=== PATIENT | male | born 1955 | race Caucasian/White ===

== ENCOUNTER 2020-02-11 02:00 | Outpatient (CLI) | payer BC, SELFPAY ==
[2020-02-11 20:00] LABS: SARS-CoV-2 RNA PCR Negative
== END 2020-02-11 02:01 | disposition home or self-care (01) ==
LOC: ANHCOVIDDT 02:01
PROVIDERS: PCP Family Medicine; Visit Provider Internal Medicine Critical Care Medicine
DX: Z01.812 Encounter for preprocedural laboratory examination (principal); Z20.828 Contact with and (suspected) exposure to other viral communicable diseases
CPT/HCPCS: 87635; C9803; U0003

== ENCOUNTER 2020-02-14 07:53 | Outpatient (CLI) | payer BC, SELFPAY ==
--- NOTE | 2020-03-25 16:11 | WPDSLEEPSTUD ---
Sleep Study Date of Study: 02/14/20 Ordering Provider: Dr.Foner Leon. Interpreting Physician: Sleep Study Type: ASV Height: 1.78 m Weight: 83.915 kg Body Mass Index: 26.5 Neck Circumference: 41.91 cm [place]: 11 Reason for Sleep Study Patient has established diagnosis of obstructive sleep apnea and has been using BiPAP therapy. However he continues to have significant daytime symptomatology, difficulty in the getting sleep with BiPAP, and BiPAP download showing many central events. Sleep History History of snoring, daytime sleepiness, daytime fatigue. [facility] Past Medical History Medical History (Updated 02/08/20 @ 08:56 by Katharina Acuna) Actinic keratosis Acute pharyngitis, unspecified Benign prostatic hyperplasia without lower urinary tract symptoms Chronic left ventricular systolic dysfunction Chronic low back pain Chronic systolic (congestive) heart failure Colon cancer screening Dietary counseling and surveillance (05/30/15) Dyslipidemia Elevated glucose Family history of early CAD Fatigue Hx of melanoma of skin 0.43 mm February 2014 Mixed hyperlipidemia Multinodular goiter Nail remnant of finger Numbness of right hand Other chronic pain Paresthesia and pain of right extremity Paresthesia of skin Personal history of malignant melanoma Prediabetes Prostate cancer screening Situational depression Skin exam, screening for cancer Skin neoplasm Thyroid nodule Vitamin D deficiency Wellness examination Surgical History Surgical History History of hernia repair History of spinal fusion Family History Family History Father Hypertension Patient's father is in good health Family history of cardiovascular disease Mother Patient's mother is Sibling Patient's sister is in good health Patient's brother is in good health Other Family history of congestive heart failure Social History Social History Smoking status: Light tobacco smoker Tobacco type: cigars Second hand tobacco smoke exposure: No Alcohol intake: current Substance use type: marijuana Medications Home Medications Medication Instructions Recorded Confirmed Type aspirin 81 mg tablet,delayed 81 mg PO DAILY 01/07/19 01/07/20 History release glucosamine 500 mg-msm 100 mg-vit cap PO 01/07/19 01/07/20 History C 20 hc-lyupq-xzxy-primrose capsule krill oil 500 mg capsule mg PO 01/07/19 01/07/20 History multivitamin 1 tablet PO DAILY 01/07/19 01/07/20 History cyanocobalamin (vitamin B-12) 1,000 mcg PO DAILY 04/01/19 01/07/20 History 1,000 mcg capsule pyridoxine (vitamin B6) 50 mg 50 mg PO DAILY 04/01/19 01/07/20 History capsule simvastatin 40 mg tablet See Rx Instructions .ROUTE 06/21/19 01/07/20 Rx .COMPLEX #90 tablet eszopiclone 3 mg tablet 3 mg PO .hs #2 tablet 01/07/20 01/07/20 Rx Sleep Procedure Overnight polysomnography devoted to ASV titration. Initially nasal pillows were used but subsequently Resmed air fit F 30 fullface mask of medium size was employed. Sleep Architecture total recording time 427 minutes, total sleep time 330 minutes, sleep efficiency 77.3%. Sleep latency 4.5 minutes, REM latency 142 minutes. Awake after sleep onset 92 minutes, stage N1 13%, N2 69.7%, N3 0%, REM sleep 17.3%. Supine sleep 52.6%, supine REM 8.6%. Respiratory Analysis AASM criteria used. During titration there were no obstructive or central apneas. Patient had 35 hypopnea episodes with index of 6.4. Apnea-hypopnea index was 6.4, supine index 8.0 nonsupine index 4.6. REM index 0 non-REM index 7.7. Arousals Total arousals 278 with index 39.1, hypopnea 23, snore 3, spontaneous 160, leg movements 92. Periodic Limb Movements There were numerous leg movements, a total of 1393 episodes counte
[2020-03-25 16:33] VITALS: BMI 26.5
== END 2020-02-14 07:54 | disposition home or self-care (01) ==
LOC: ANHCSM 07:54
PROVIDERS: PCP Family Medicine; Visit Provider Nurse Practitioner Family
DX: G47.31 Primary central sleep apnea (principal)
CPT/HCPCS: 95811

== ENCOUNTER 2020-05-15 08:27 | Outpatient (CLI) | payer BC, SELFPAY ==
--- NOTE | 2020-05-15 08:52 | ECHO_ITS ---
Patient Info Name: James Bolton Age: 64 years : 1955 Gender: Male Ht: 70 in Wt: 185 lbs BSA: 2.05 m2 HR: 58 bpm BP: 149 / 69 mmHg Technical Quality: Good Exam Date: 05/15/2020 9:23 AM Exam Location: [facility] Patient Status: Outpatient Admit Date: 05/15/2020 Staff Ordering Physician: Ming Ayala APRN Manufacturing Quality Engineer: Kerry Chowdary RDCS Attending Provider: Ming Ayala APRN Referring Physician: Jamie JO; Exam Type: CA echo doppler color flow Study Info Indications - sleep apnea Complete two-dimensional, color flow and Doppler transthoracic echocardiogram is performed. Summary 1. Complete two-dimensional, color flow and Doppler transthoracic echocardiogram is performed. 2. Left ventricular chamber dimension is normal. 3. Left ventricular systolic function is normal, estimated at 55-60%. 4. The left ventricular diastolic function is grade II diastolic dysfunction. 5. Left atrial chamber dimension is mildly enlarged. 6. The mitral valve has mildly calcified annulus. 7. There is trace mitral valve regurgitation. 8. There is trace tricuspid valve regurgitation. 9. No pulmonary hypertension, estimated pulmonary arterial systolic pressure is 19 mmHg. Left Ventricle Tissue doppler is not performed. Left ventricular chamber dimension is normal. Left ventricular systolic function is normal, estimated at 55-60%. The left ventricular diastolic function is grade II diastolic dysfunction. Right Ventricle Right ventricular chamber dimension is normal. Right ventricular systolic function is normal. Left Atria Left atrial chamber dimension is mildly enlarged. Right Atria Right atrial chamber dimension is normal. Aortic Valve The aortic valve is trileaflet. There is no aortic valve stenosis. There is no aortic valve regurgitation. Pulmonic Valve There is no pulmonic regurgitation. Mitral Valve The mitral valve has mildly calcified annulus. There is no mitral valve stenosis. There is trace mitral valve regurgitation. Tricuspid Valve There is trace tricuspid valve regurgitation. No pulmonary hypertension, estimated pulmonary arterial systolic pressure is 19 mmHg. Pericardium/Pleural There is no pericardial effusion. Inferior Vena Cava Normal inferior vena cava with >50% collapse upon inspiration consistent with normal right atrial pressure, 5 mmHg. Aorta The aortic root size at the sinus of Valsalva is normal. Left Ventricular Outflow Tract Name Value Normal LVOT 2D LVOT Diameter 2.1 cm LVOT Doppler LVOT Peak Gradient 4 mmHg LVOT Mean Gradient 2 mmHg LVOT VTI 20 cm LVOT VTI/AV VTI Ratio 0.8 LVOT Stroke Volume 72 ml LVOT CO 13.6 l/min LVOT CI 6.6 l/min/m2 Mitral Valve Name Value Normal
== END 2020-05-15 08:28 | disposition home or self-care (01) ==
PROVIDERS: PCP Family Medicine; Visit Provider Nurse Practitioner Family
DX: I50.22 Chronic systolic (congestive) heart failure (principal); G47.31 Primary central sleep apnea
CPT/HCPCS: 93306

== ENCOUNTER 2020-09-08 01:22 | Day surgery (SDC) | payer MEDICARE, SELFPAY ==
[2020-08-30 11:06] VITALS: BMI 26.5
[2020-09-08 08:14] VITALS: BP 121/82; PULSE 76; RESP 20; TEMP 35.9; O2SAT 100; BMI 28.2
--- NOTE | 2020-09-08 08:30 | WPDGICN ---
Assessment and Plan Assessment and plan (1) Colon cancer screening: Code(s): Z12.11 - Encounter for screening for malignant neoplasm of colon Status: Acute Assessment and Plan: Patient presents for screening colonoscopy. He had does have a history of colon polyps. Further recommendations will be given after colonoscopy. (2) History of colon polyps: Code(s): Z86.010 - Personal history of colonic polyps Status: Acute Assessment and Plan: Patient had colon polyps identified by endoscopy 2018. Plan is for surveillance colonoscopy at this time and at intervals in the future. GI Consult Note Consult date/time: 09/08/20 08:30 HPI: James Bolton is a 65 year old male presents for surveillance colonoscopy. Patient has a history of colon polyps by endoscopy 3 years ago. Patient reports that his current weight appetite bowel movements are normal. He denies abdominal pain. He has had no pain or bleeding. His family history is noncontributory. Review of Systems Review of Systems: All systems reviewed & are unremarkable except as noted in HPI and below PMFSH Past Medical History Medical History (Updated 09/08/20 @ 08:32 by Tom Do MD) Actinic keratosis Acute pharyngitis, unspecified Benign prostatic hyperplasia without lower urinary tract symptoms Chronic left ventricular systolic dysfunction Chronic low back pain Chronic systolic (congestive) heart failure Colon cancer screening Dietary counseling and surveillance (05/30/15) Dyslipidemia Elevated glucose Family history of early CAD Fatigue Hx of melanoma of skin 0.43 mm February 2014 Mixed hyperlipidemia Multinodular goiter Nail remnant of finger Numbness of right hand Other chronic pain Paresthesia and pain of right extremity Paresthesia of skin Personal history of malignant melanoma Prediabetes Prostate cancer screening Situational depression Skin exam, screening for cancer Skin neoplasm Thyroid nodule Vitamin D deficiency Wellness examination Surgical History Surgical History History of hernia repair History of spinal fusion Family History Family History Father Hypertension Patient's father is in good health Family history of cardiovascular disease Mother Patient's mother is Sibling Patient's sister is in good health Patient's brother is in good health Other Family history of congestive heart failure Social History Social History Smoking status: Current some day smoker Tobacco type: cigars Second hand tobacco smoke exposure: No Alcohol intake: current Drinks per week: 2 Substance use: current Substance use type: marijuana Living arrangements: with family Spiritual care concerns: No Meds Home Medications and Allergies Home Medications Medication Instructions Recorded Confirmed Type aspirin 81 mg tablet,delayed 81 mg PO DAILY 01/07/19 09/06/20 History release glucosamine 500 mg-msm 100 mg-vit 1 cap PO DAILY 01/07/19 09/06/20 History C 20 az-ypotg-zwhw-primrose capsule krill oil 500 mg capsule 500 mg PO DAILY 01/07/19 09/06/20 History multivitamin 1 tablet PO DAILY 01/07/19 09/06/20 History cyanocobalamin (vitamin B-12) 1,000 mcg PO DAILY 04/01/19 09/06/20 History 1,000 mcg capsule pyridoxine (vitamin B6) 50 mg 50 mg PO DAILY 04/01/19 09/06/20 History capsule simvastatin 40 mg PO DAILY 08/30/20 09/06/20 History Allergies Allergy/AdvReac Type Severity Reaction Status Date / Time No Known Allergies Allergy Unknown Verified 09/08/20 08:13 Vital Signs Vital Signs - 24 hr 09/08/20 08:14 Temperature 96.6 F L Pulse Rate 76 Respiratory Rate 20 Blood Pressure 121/82 Pulse Oximetry 100 Exam Narrative: Exam Narrative: Physical exam reveals patient be
[2020-09-08] MEDS: LACTATED RINGERS 1,000 ML 150 ML IV CONT (08:34)
--- NOTE | 2020-09-08 08:50 | WPDANESEPPF ---
Anes - Initial Pre Proc Eval Procedure: Operation Date: 09/08/20 09:30 Proposed Procedures p Screening Colonoscopy - Tom Do MD Date/Time: 09/08/20 08:50 Surgeon: Tom Do MD Pre Op Diagnosis: hx of colon polyps Patient Data Age: 65 Gender: M Height: 1.78 m Weight: 89.2 kg Last Vital Signs Temp 35.9 C L 09/08/20 08:14 Pulse 76 09/08/20 08:14 Resp 20 09/08/20 08:14 BP 121/82 09/08/20 08:14 Pulse Ox 100 09/08/20 08:14 Allergies Allergy/AdvReac Type Severity Reaction Status Date / Time No Known Allergies Allergy Unknown Verified 09/08/20 08:13 Home Medications Medication Instructions Recorded Confirmed Type aspirin 81 mg tablet,delayed 81 mg PO DAILY 01/07/19 09/06/20 History release glucosamine 500 mg-msm 100 mg-vit 1 cap PO DAILY 01/07/19 09/06/20 History C 20 kv-erkpi-uxnq-primrose capsule krill oil 500 mg capsule 500 mg PO DAILY 01/07/19 09/06/20 History multivitamin 1 tablet PO DAILY 01/07/19 09/06/20 History cyanocobalamin (vitamin B-12) 1,000 mcg PO DAILY 04/01/19 09/06/20 History 1,000 mcg capsule pyridoxine (vitamin B6) 50 mg 50 mg PO DAILY 04/01/19 09/06/20 History capsule simvastatin 40 mg PO DAILY 08/30/20 09/06/20 History Patient hx anesthesia problems: none Family hx anesthesia problems: none PMFSH Past Medical History Medical History Actinic keratosis Acute pharyngitis, unspecified Benign prostatic hyperplasia without lower urinary tract symptoms Chronic left ventricular systolic dysfunction Chronic low back pain Chronic systolic (congestive) heart failure Colon cancer screening Dietary counseling and surveillance (05/30/15) Dyslipidemia Elevated glucose Family history of early CAD Fatigue Hx of melanoma of skin 0.43 mm February 2014 Mixed hyperlipidemia Multinodular goiter Nail remnant of finger Numbness of right hand Other chronic pain Paresthesia and pain of right extremity Paresthesia of skin Personal history of malignant melanoma Prediabetes Prostate cancer screening Situational depression Skin exam, screening for cancer Skin neoplasm Thyroid nodule Vitamin D deficiency Wellness examination Surgical History Surgical History History of hernia repair History of spinal fusion Family History Family History Father Hypertension Patient's father is in good health Family history of cardiovascular disease Mother Patient's mother is Sibling Patient's sister is in good health Patient's brother is in good health Other Family history of congestive heart failure Social History Social History Smoking status: Current some day smoker Tobacco type: cigars Second hand tobacco smoke exposure: No Alcohol intake: current Drinks per week: 2 Substance use: current Substance use type: marijuana Living arrangements: with family Spiritual care concerns: No Anes - Eval Final PreProcedure Day of Procedure 09/08/20 08:50 Patient weight: overweight Heart: regular rate and rhythm Lungs: decreased breath sounds Airway: Mallampati scale class II Neurological: alert and oriented Last oral intake: >/= 8 hours ASA classification: III Emergent: no Anesthetic plan: proceed Anesthesia type and monitoring: general GIVS and standard monitoring Informed Consent: The patient's anesthetic plan and its attendant risks and benefits were discussed with the patient/family/POA. Questions were solicited and answers provided to the satisfaction of the patient/family/POA.
[2020-09-08 09:49] VITALS: BP 99/67; PULSE 71; RESP 20; O2SAT 99
[2020-09-08 09:59] VITALS: BP 124/83; PULSE 68; RESP 22; O2SAT 100
[2020-09-08 10:09] VITALS: BP 131/86; PULSE 58; RESP 15; O2SAT 100
== END 2020-09-08 10:13 | disposition home or self-care (01) ==
PROVIDERS: PCP Family Medicine; Visit Provider Internal Medicine Gastroenterology
PROC: 0DJD8ZZ Inspection of Lower Intestinal Tract, Via Natural or Artificial Opening Endoscopic (ICD-10-PCS; CPT 45378; principal; 2020-09-08 09:30)
DX: Z12.11 Encounter for screening for malignant neoplasm of colon (principal); Z86.010 Personal history of colon polyps; I50.9 Heart failure, unspecified; E78.5 Hyperlipidemia, unspecified; E78.2 Mixed hyperlipidemia; E04.2 Nontoxic multinodular goiter; E55.9 Vitamin D deficiency, unspecified; K64.8 Other hemorrhoids; N40.0 Benign prostatic hyperplasia without lower urinary tract symptoms; M54.5 Low back pain; R20.2 Paresthesia of skin; R73.03 Prediabetes; F17.200 Nicotine dependence, unspecified, uncomplicated; F43.21 Adjustment disorder with depressed mood; Z98.1 Arthrodesis status; Z85.820 Personal history of malignant melanoma of skin
CPT/HCPCS: G0105; J2704; J7120

== ENCOUNTER 2020-11-20 12:55 | Outpatient (CLI) | payer MEDICARE, SELFPAY | END 2020-11-20 12:56 | disposition home or self-care (01) | LOC: ANHAUDASC 12:56 | PROVIDERS: PCP Family Medicine; Visit Provider Family Medicine | DX: H93.19 Tinnitus, unspecified ear (principal); H90.3 Sensorineural hearing loss, bilateral | CPT/HCPCS: 92557; 92567 ==

== ENCOUNTER → 2021-02-08 08:38 | Outpatient (REF) | payer MEDICARE, SELFPAY | LOC: ANHLAB 08:38 | PROVIDERS: PCP Family Medicine; Visit Provider Nurse Practitioner | DX: D23.39 Other benign neoplasm of skin of other parts of face (principal) | CPT/HCPCS: 88305 ==

== ENCOUNTER → 2021-03-01 12:07 | Outpatient (REF) | payer MEDICARE, SELFPAY | LOC: ANHLAB 12:07 | PROVIDERS: PCP Family Medicine; Visit Provider Nurse Practitioner | DX: D49.2 Neoplasm of unspecified behavior of bone, soft tissue, and skin (principal) | CPT/HCPCS: 88305 ==

== ENCOUNTER 2021-04-09 11:46 | Outpatient (CLI) | payer MEDICARE, SELFPAY | END 2021-04-09 11:47 | disposition home or self-care (01) | LOC: ANHLAB 11:58 | PROVIDERS: PCP Family Medicine; Visit Provider Nurse Practitioner Family | DX: G25.81 Restless legs syndrome (principal); D50.9 Iron deficiency anemia, unspecified | CPT/HCPCS: 36415; 82728 ==

== ENCOUNTER 2021-04-18 08:44 | Outpatient (CLI) | payer MEDICARE, SELFPAY | END 2021-04-18 08:45 | disposition home or self-care (01) | PROVIDERS: PCP Family Medicine; Visit Provider Nurse Practitioner Family | DX: D50.9 Iron deficiency anemia, unspecified (principal) | CPT/HCPCS: 36415; 82728 ==

== ENCOUNTER 2021-05-15 13:18 | Outpatient (CLI) | payer MEDICARE, SELFPAY ==
--- NOTE | ~2021-05-15 | US_ITS ---
EXAMINATION: US thyroid EXAM DATE: 05/15/2021 13:51 INDICATION: E04.1 - Nontoxic single thyroid nodule TECHNIQUE: Multiple grayscale and Doppler images of the thyroid were obtained (by a technologist who performed the scan) and subsequently reviewed. Individual nodules and recommendations may be reporte d in accordance with TI-RADS system as designated by the 2017 ACR White Paper TI-RADS committee. Comp bernardino is made to prior examination from 07/12/2016, 03/24/2015. FINDINGS: The right thyroid lobe measures 4.4 x 2.5 x 1.8 cm, the left measuring 3.1 x 1.9 x 1.2 cm. There is m ildly diffusely heterogeneous thyroid parenchyma echogenicity. Right thyroid lobe category TR 4 nodule measuring 1.1 x 0.8 x 1.1 cm, mild interval increase in size compared to 2016 (2016 dimensions 7 x 6 x 5 mm). IMPRESSION: Right there are lobe nodule measuring up to 1.1 cm. Consider ultrasound guided FNA given mild increase in size. Reviewed, dictated and finalized at location G. IMPRESSION: Right there are lobe nodule measuring up to 1.1 cm. Consider ultras ound guided FNA given mild increase in size.
== END 2021-05-15 13:19 | disposition home or self-care (01) ==
PROVIDERS: PCP Family Medicine; Visit Provider Family Medicine
DX: E04.1 Nontoxic single thyroid nodule (principal)
CPT/HCPCS: 76536

== ENCOUNTER 2021-08-20 12:45 | Outpatient (CLI) | payer MEDICARE, SELFPAY ==
--- NOTE | ~2021-08-20 | US_ITS ---
EXAMINATION: US FNA w image guidance DATE: 08/20/2021 14:11 INDICATION: Nontoxic single thyroid nodule TECHNIQUE: A time-out was performed to verify the patient's name, date of , and procedure to be performed . The procedure and its benefits and risks were discussed with the patient. Risks specifically discus sed included bleeding and infection. The patient understood the risks and agreed to proceed. The neck was prepped and draped in the usual sterile manner. 3 mL 1% lidocaine was used for local anesthesia . 6 passes were made with a 25G needle into the lesion. Appropriate needle location was documented with continuous sonographic guidance. A sterile bandage was applied. There were no immediate compli cations. FINDINGS: Grayscale ultrasound images demonstrate biopsy needles advanced into a 1.2 x 1.0 x 0.8 cm solid hypoe choic nodule at the superior left thyroid. IMPRESSION: 1. Successful ultrasound-guided fine needle aspiration of the previously identified enlarging 1.2 cm nodule at the superior left thyroid. Reviewed, dictated and finalized at location A. IMPRESSION: 1. Successful ultrasound-guided fine needle aspiration of the previously ident ified enlarging 1.2 cm nodule at the superior left thyroid.
== END 2021-08-20 12:46 | disposition home or self-care (01) ==
PROVIDERS: PCP Family Medicine; Visit Provider Nurse Practitioner
DX: E04.1 Nontoxic single thyroid nodule (principal)
CPT/HCPCS: 10005; 88173; 88305

== ENCOUNTER 2022-02-12 07:00 | Outpatient (NON) | payer MEDICARE, SELFPAY | END 2022-02-12 07:01 | disposition home or self-care (01) | LOC: ANHLAB 16:16 | PROVIDERS: PCP Family Medicine; Visit Provider Nurse Practitioner | DX: D22.71 Melanocytic nevi of right lower limb, including hip (principal) | CPT/HCPCS: 88305; 88342 ==

== ENCOUNTER 2022-09-26 09:21 | Outpatient (CLI) | payer MEDICARE, SELFPAY ==
--- NOTE | 2022-09-26 09:29 | ECG_ITS ---
Measurements Intervals Desmet Rate: 78 P: 52 MD: 165 QRS: -11 QRSD: 98 T: 24 QT: 374 QTc: 427 Interpretive Statements SINUS RHYTHM NO PREVIOUS ECG AVAILABLE FOR COMPARISON Electronically Signed On 09-26-2022 10:19:39 CDT by Roxanne Saldana M.D.
[2022-09-26 10:05] LABS: Hematocrit 45.7 % (42.0-52.0); Hemoglobin 15.8 g/dL (14.0-18.0)
== END 2022-09-26 09:22 | disposition home or self-care (01) ==
LOC: ANHSURGERY 09:25
PROVIDERS: Anesthesiology; PCP Family Medicine; Visit Provider Otolaryngology
DX: Z01.818 Encounter for other preprocedural examination (principal); E61.1 Iron deficiency; E78.2 Mixed hyperlipidemia
CPT/HCPCS: 36415; 85014; 85018; 93005

== ENCOUNTER 2022-10-01 00:15 | Day surgery (SDC) | payer MEDICARE, SELFPAY ==
[2022-09-19 15:13] VITALS: BMI 27.9
--- NOTE | 2022-09-19 15:43 | PC.NURSE ---
Report to the Outpatient Waiting Room, entrance under the green pavilion located off [facility], at time _8:30AM on date __10/01/22 . Planned Procedure Time: __10:30AM . Time changes happen often and if your time is changed the preop area will call you the afternoon before. - You and your visitor will be asked to self-screen and do not enter if you have any COVID symptoms. - A mask is optional within the hospital at this time. Patients may have clear liquids (water, carbonated beverages, clear teas, apple juice) until 3 hours prior to surgery with a maximum of 20 ounces. - No food from midnight until time of surgery Take the following medications with a SIP of water the morning of surgery: ___NONE DO NOT STOP ANY OF YOUR OTHER PRESCRIPTION MEDICATIONS PRIOR TO SURGERY ?EXCEPT THE FOLLOWING Medications to discontinue per physician ___HOLD ALL VITAMINS/SUPPLEMENTS 3 DAYS PRE-OP Date to take last dose 09/27/22 Please no make-up, nail hebrew, hairspray, perfume, deodorant, or body powder the day of surgery. No jewelry (including any body piercings) or valuables the day of surgery, leave them at home. Please take a shower or bath the night before, or the morning of, surgery with an antibacterial soap. Wear comfortable, loose fitting clothing. Children are encouraged to wear pajamas. - Jewelry must be removed prior to entering the operating room. Rings and piercings that are not removed may be cut off. - The hospital will not accept responsibility for valuables. - Please leave all valuables, including medications, at home the day of surgery. If you are going home after surgery, a licensed new car driver must drive you home. - NO public transportation without another adult if you receive anesthesia. - We recommend that an adult stay with you for 24 hours following discharge. - We also recommend that you do not drive, make important decision, drink alcoholic beverages, or take any drugs that were not prescribed by your health care provider for at least 24 hours after your discharge time. Follow any additional instructions given to you from your surgeon. If you or anyone in your household have experienced Covid symptoms in the past week, please notify your surgeon or the nurse liaison at the phone number below for possible testing. Telephone instructions given to __PATIENT and asked if any additional questions and then verbalized understanding. Patient advised to call surgeon office or pre surgery nurse liaison [phone] if any additional questions.
--- NOTE | 2022-09-30 08:03 | PM.IMHP ---
H&P: HPI History of Present Illness Date/Time: 09/30/22 08:03 Chief Complaint: Midline neck mass clinically consistent with lipoma Narrative: planned procedure Review of Systems Review of Systems: All systems reviewed & are unremarkable except as noted in HPI and below [facility] Past Medical History Medical History Actinic keratosis Acute pharyngitis, unspecified Benign prostatic hyperplasia without lower urinary tract symptoms Chronic left ventricular systolic dysfunction Chronic low back pain Chronic systolic (congestive) heart failure Colon cancer screening COVID-19 Dietary counseling and surveillance (05/30/15) Dyslipidemia Elevated glucose Family history of early CAD Fatigue Glaucoma Hx of melanoma of skin 0.43 mm February 2014 Mixed hyperlipidemia Multinodular goiter Nail remnant of finger Numbness of right hand Other chronic pain Paresthesia and pain of right extremity Paresthesia of skin Personal history of malignant melanoma Prediabetes Prediabetes Prostate cancer screening Situational depression Skin exam, screening for cancer Skin neoplasm Thyroid nodule Thyroid nodule Tinnitus Vitamin D deficiency Wellness examination Surgical History Surgical History History of hernia repair History of spinal fusion Family History Family History Father Hypertension Patient's father is in good health Family history of cardiovascular disease Mother Patient's mother is Sibling Patient's sister is in good health Patient's brother is in good health Other Family history of congestive heart failure Social History Social History Smoking status: Current some day smoker Tobacco type: cigars Second hand tobacco smoke exposure: No Additional smoking assessment comments: OCCAS CIGAR SMOKER X 20 YEARS Alcohol intake: current Drinks per week: 4 Substance use: never Substance use type: marijuana Lack of Transportation: No Lack of Food: Never True Current Housing: I Have Housing Concerned About Future Housing: No Difficulty Paying Gas/Electric Bills: No Difficulty Paying for Meds: No Currently Unemployed: No Education: High School Diploma/GED Difficulty w/ Childcare or Family Care: No Living arrangements: with family Additional living arrangements comments: Occupation/Education: retired Gender identity (if verbalized by the patient): Male Sexual Orientation (if Verbalized by the Patient): Straight or Heterosexual Spiritual care concerns: No Agree to blood products: Yes Meds Home Medications and Allergies Home Medications Medication Instructions Recorded Confirmed Type aspirin 81 mg tablet,delayed 81 mg PO DAILY 01/07/19 09/19/22 History release (Aspir-Low) multivitamin 1 tablet PO DAILY 01/07/19 09/19/22 History cyanocobalamin (vitamin B-12) 1,000 mcg PO 2XW 04/01/19 09/19/22 History 1,000 mcg capsule pyridoxine (vitamin B6) 50 mg 50 mg PO DAILY 04/01/19 09/19/22 History capsule ferrous sulfate 325 mg (65 mg 325 mg PO DAILY #30 tabs 09/12/20 09/19/22 Rx iron) tablet ascorbate calcium (vitamin C) 500 500 mg PO DAILY 11/08/20 09/19/22 History mg tablet tamsulosin 0.4 mg capsule (Flomax) 0.4 mg PO QHS #90 caps 06/02/22 09/19/22 Rx finasteride 5 mg tablet 5 mg PO DAILY #90 tabs 08/25/22 09/19/22 Rx imjdaetqjuh-irkewbqwr-qatz658-hyal 1 tablet PO DAILY 09/19/22 09/19/22 History 750 mg-100 mg-125 mg-1.65 mg tablet (Glucosamine Chondroit Complx Advan) latanoprost 0.005 % eye drops 1 drp EACH EYE HS 09/19/22 09/19/22 History simvastatin 40 mg tablet 40 mg PO DAILY #100 tabs 09/29/22 Rx Allergies Allergy/AdvReac Type Severity Reaction Status Date / Time No Known Allergies Allergy
[2022-10-01] VITALS (9 sets, daily range): BP systolic 112–127; BP diastolic 75–86; PULSE 73–97; RESP 12–20; TEMP 36.2–36.3; O2SAT 96–100
[2022-10-01] MEDS: ACETAMINOPHEN 500 MG TABLET 1000 MG PO (06:20)
[2022-10-01] MEDS: LACTATED RINGERS 1,000 ML 30 ML IV CONT (06:25)
--- NOTE | 2022-10-01 07:08 | WPDANESEPPF ---
Anes - Initial Pre Proc Eval Procedure: Operation Date: 10/01/22 07:30 Proposed Procedures p Excision of Midline Neck Mass - Eliot Hidalgo MD Date/Time: 10/01/22 07:08 Surgeon: Eliot Hidalgo MD Pre Op Diagnosis: midline neck mass Patient Data Age: 67 Gender: M Height: 1.77 m Weight: 88.4 kg Last Vital Signs Temp 36.3 C L 10/01/22 06:15 Pulse 73 10/01/22 06:15 Resp 16 10/01/22 06:15 BP 127/85 10/01/22 06:15 Pulse Ox 98 10/01/22 06:15 O2 Del Method Room Air 10/01/22 06:15 Allergies Allergy/AdvReac Type Severity Reaction Status Date / Time No Known Allergies Allergy Unknown Verified 10/01/22 06:07 Home Medications Medication Instructions Recorded Confirmed Type aspirin 81 mg tablet,delayed 81 mg PO DAILY 01/07/19 09/19/22 History release (Aspir-Low) multivitamin 1 tablet PO DAILY 01/07/19 09/19/22 History cyanocobalamin (vitamin B-12) 1,000 mcg PO 2XW 04/01/19 09/19/22 History 1,000 mcg capsule pyridoxine (vitamin B6) 50 mg 50 mg PO DAILY 04/01/19 09/19/22 History capsule ferrous sulfate 325 mg (65 mg 325 mg PO DAILY #30 tabs 09/12/20 09/19/22 Rx iron) tablet ascorbate calcium (vitamin C) 500 500 mg PO DAILY 11/08/20 09/19/22 History mg tablet tamsulosin 0.4 mg capsule (Flomax) 0.4 mg PO QHS #90 caps 06/02/22 09/19/22 Rx finasteride 5 mg tablet 5 mg PO DAILY #90 tabs 08/25/22 09/19/22 Rx [id number]-[id number] 1 tablet PO DAILY 09/19/22 09/19/22 History 750 mg-100 mg-125 mg-1.65 mg tablet (Glucosamine Chondroit Complx Advan) latanoprost 0.005 % eye drops 1 drp EACH EYE HS 09/19/22 09/19/22 History simvastatin 40 mg tablet 40 mg PO DAILY #100 tabs 09/29/22 Rx Patient hx anesthesia problems: none Family hx anesthesia problems: none Results Review: All pre-operative results and documents have been reviewed as part of the pre-operative evaluation. [facility] Past Medical History Medical History Actinic keratosis Acute pharyngitis, unspecified Benign prostatic hyperplasia without lower urinary tract symptoms Chronic left ventricular systolic dysfunction Chronic low back pain Chronic systolic (congestive) heart failure Colon cancer screening COVID-19 Dietary counseling and surveillance (05/30/15) Dyslipidemia Elevated glucose Family history of early CAD Fatigue Glaucoma Hx of melanoma of skin 0.43 mm February 2014 Mixed hyperlipidemia Multinodular goiter Nail remnant of finger Numbness of right hand Other chronic pain Paresthesia and pain of right extremity Paresthesia of skin Personal history of malignant melanoma Prediabetes Prediabetes Prostate cancer screening Situational depression Skin exam, screening for cancer Skin neoplasm Thyroid nodule Thyroid nodule Tinnitus Vitamin D deficiency Wellness examination Surgical History Surgical History History of hernia repair History of spinal fusion Family History Family History Father Hypertension Patient's father is in good health Family history of cardiovascular disease Mother Patient's mother is Sibling Patient's sister is in good health Patient's brother is in good health Other Family history of congestive heart failure Social History Social History Smoking status: Current some day smoker Tobacco type: cigars Second hand tobacco smoke exposure: No Additional smoking assessment comments: OCCAS CIGAR SMOKER X 20 YEARS Alcohol intake: current Drinks per week: 4 Substance use: never Substance use type: marijuana Lack of Transportation: No Lack of Food: Never True Current Housing: I Have Housing Concerned About Future Housing: No Difficulty Paying Gas/Electric Bills: No Difficulty Paying
--- NOTE | 2022-10-01 07:18 | WPDHPUPDATE1 ---
History and Physical Update Update Date/Time: 10/01/22 07:18 History and Physical has been reviewed, including an updated exam of the patient. There are NO changes in the patient's condition. Risks, benefits, and alternatives have been discussed and questions answered. Patient agrees to proceed with procedure.
[2022-10-01] MEDS: ceFAZolin 2 GM/D5W 50 ML 2 GM/50 ML BAG IVPB (07:26)
[2022-10-01] MEDS: LIDO 1%/EPINEPHRINE 1:100,000 20 ML VIAL 10 ML INFILTRATE (07:57)
--- NOTE | 2022-10-01 08:54 | W.PM.PROC2 ---
Procedure Note - Detailed Date of Procedure 10/01/22 Pre-op Diagnosis midline neck mass Post-op Diagnosis Same Procedure Performed Excision of midline neck mass measured 8 x 6 cm Surgeon Eliot Hidalgo MD Anesthesia General Indications see above Findings 8 x 6 cm mass consistent with lipoma minimal if any bleeding Description of Procedure patient identified consent verified preop. Patient brought operating room. Time-out performed. General anesthesia induced endotracheal tube secured. Patient prepped draped position procedure confirmed. Second time-out performed. By 6 cm incision made in the midline along relaxed skin tension line after it was injected with about 3 cc 1% lidocaine 1 100,000 parts epinephrine. Fifteen blade was utilized to cut through the epidermis and dermis. Bovie through the deep dermal tissue and platysma. Dissection occurred around the mass using blunt scissors as well as bipolar to limit bleeding from any vessels attached to the lipoma and peanuts to help with blunt dissection. Minimal bleeding there was 1 bleeding vessel often anterior jugular vein. The entire mass was removed without complication. The entire dissection part type plane of dissection was anterior to the anterior jugular veins in deep to the platysma. After the mass was removed it was measured measured 8 x 6 cm. The wound was then copiously irrigated with sterile normal saline about 500 cc. No bleeding was observed. Anesthesia Valsalva no bleeding. The deep layers were closed with interrupted 3-0 Vicryl sutures. A running subcuticular 4-0 Monocryl was utilized as well skin glue was placed to hold the skin together. Patient tolerated the procedure well no complications. I performed all dictated portions the procedure. Care the patient given Anesthesiology. Blood loss less than 2 cc. Estimated Blood Loss -2.0 Drains No Packing No Pathology Yes Complications No immediate complications Condition Stable Disposition PACU [facility] Billing Surgery - Charge Forward: Surgery Billing
== END 2022-10-01 10:20 | disposition home or self-care (01) ==
PROVIDERS: PCP Family Medicine; Visit Provider Otolaryngology
PROC: (CPT 21552; principal; 2022-10-01 07:30)
DX: D17.0 Benign lipomatous neoplasm of skin and subcutaneous tissue of head, face and neck (principal); I50.22 Chronic systolic (congestive) heart failure; N40.0 Benign prostatic hyperplasia without lower urinary tract symptoms; H40.9 Unspecified glaucoma; E78.2 Mixed hyperlipidemia; Z98.1 Arthrodesis status; Z72.0 Tobacco use
CPT/HCPCS: 21552; 36415; 85014; 85018; 88304; 93005; A9270; J0330; J0690; J1100; J2250; J2371; J2405; J2704; J3010; J7120

== ENCOUNTER 2022-12-13 16:04 | Inpatient (IN) | payer MEDICARE, SELFPAY ==
[2022-12-04 11:12] VITALS: BMI 28.3
--- NOTE | 2022-12-04 11:18 | PC.NURSE ---
Report to the Outpatient Waiting Room, entrance under the green pavilion located off [facility], at time __0600 on date _12/12/22____. Planned Procedure Time: ___0730 . Time changes happen often and if your time is changed the preop area will call you the afternoon before. - You and your visitor will be asked to self-screen and do not enter if you have any COVID symptoms. - A mask is optional within the hospital at this time. Patients may have clear liquids (water, carbonated beverages, clear teas, apple juice) until 3 hours prior to surgery with a maximum of 20 ounces. - No food from midnight until time of surgery - Infants may have breast milk until 4 hours before surgery, formula 6 hours prior to surgery. - Children will be allowed to drink immediately following surgery. If applicable, please bring a bottle or sippy cup to assist with drinking. Juice, water, soda, and popsicles are readily available. For infants on formula, please bring formula the day of surgery. Pacifiers are allowed. Take the following medications with a SIP of water the morning of surgery: NONE DO NOT STOP ANY OF YOUR OTHER PRESCRIPTION MEDICATIONS PRIOR TO SURGERY ?EXCEPT THE FOLLOWING Medications to discontinue - _ASPIRIN PER DR. LANDA'S INSTRUCTIONS_ Medications to discontinue per ANESTHESIA - _MULTIVITAMIN/SUPPLEMENTS 3 DAYS PRIOR TO SURGERY, Date to take last dose 12/08/22_ Please no make-up, nail kyrgyz, hairspray, perfume, deodorant, or body powder the day of surgery. No jewelry (including any body piercings) or valuables the day of surgery, leave them at home. Please take a shower or bath the night before, or the morning of, surgery with an antibacterial soap. Wear comfortable, loose fitting clothing. Children are encouraged to wear pajamas. - Jewelry must be removed prior to entering the operating room. Rings and piercings that are not removed may be cut off. - The hospital will not accept responsibility for valuables. - Please leave all valuables, including medications, at home the day of surgery. If you are going home after surgery, a licensed speedboat driver must drive you home. - NO public transportation without another adult if you receive anesthesia. - We recommend that an adult stay with you for 24 hours following discharge. - We also recommend that you do not drive, make important decision, drink alcoholic beverages, or take any drugs that were not prescribed by your health care provider for at least 24 hours after your discharge time. For Pediatric surgeries, we recommend two adults accompany the child home. Follow any additional instructions given to you from your surgeon. If you or anyone in your household have experienced Covid symptoms in the past week, please notify your surgeon or the nurse liaison at the phone number below for possible testing. Telephone instructions given to ____PT and asked if any additional questions and then verbalized understanding. Patient advised to call surgeon office or pre surgery nurse liaison [phone] if any additional questions.
--- NOTE | 2022-12-05 07:14 | PM.IMHP ---
H&P: HPI History of Present Illness Date/Time: 12/05/22 07:14 Chief Complaint: Difficulty urinating Narrative: 67-year-old gentleman who has been a patient of ours for nearly a year. He has marked obstructive voiding symptoms which have been minimally responsive to medical therapy. Urodynamics reveal a marginally hypotonic bladder with evidence of outlet obstruction. Cystoscopy shows moderate lateral lobe hyperplasia of the prostate without significant bladder pathology. After discussion of options he is electing for TURP with the understanding the may have persistent voiding symptoms. He is aware the risk of this procedure including, but not limited to, adverse cardiopulmonary events, hematuria and need for additional procedures in the future. Review of Systems Cardiovascular: Cardiovascular: Denies chest pain, Denies lightheadedness, Denies palpitations and Denies dyspnea Respiratory: Respiratory: Denies dyspnea Gastrointestinal: Gastrointestinal: Denies diarrhea, Denies nausea and Denies vomiting Genitourinary: Genitourinary: Denies hematuria and Denies dysuria Endocrine: Endocrine: Denies palpitations PMFSH Past Medical History Medical History Actinic keratosis Acute pharyngitis, unspecified Benign prostatic hyperplasia without lower urinary tract symptoms Chronic left ventricular systolic dysfunction Chronic low back pain Chronic systolic (congestive) heart failure Colon cancer screening COVID-19 Dietary counseling and surveillance (05/30/15) Dyslipidemia Elevated glucose Family history of early CAD Fatigue Glaucoma Hx of melanoma of skin 0.43 mm February 2014 Mixed hyperlipidemia Multinodular goiter Nail remnant of finger Numbness of right hand Other chronic pain Paresthesia and pain of right extremity Paresthesia of skin Personal history of malignant melanoma Prediabetes Prediabetes Prostate cancer screening Situational depression Skin exam, screening for cancer Skin neoplasm Thyroid nodule Thyroid nodule Tinnitus Vitamin D deficiency Wellness examination Surgical History Surgical History History of hernia repair History of spinal fusion Family History Family History Father Hypertension Patient's father is in good health Family history of cardiovascular disease Mother Patient's mother is Sibling Patient's sister is in good health Patient's brother is in good health Other Family history of congestive heart failure Social History Social History Smoking status: Current every day smoker Tobacco type: cigars Second hand tobacco smoke exposure: No Additional smoking assessment comments: OCCASIONAL CIGAR X 20 YRS Alcohol intake: current Drinks per week: 4 Substance use: never Substance use type: does not use Lack of Transportation: No Lack of Food: Never True Current Housing: I Have Housing Concerned About Future Housing: No Difficulty Paying Gas/Electric Bills: No Difficulty Paying for Meds: No Currently Unemployed: No Education: High School Diploma/GED Difficulty w/ Childcare or Family Care: No Living arrangements: with family Additional living arrangements comments: Occupation/Education: retired Gender identity (if verbalized by the patient): Male Sexual Orientation (if Verbalized by the Patient): Straight or Heterosexual Spiritual care concerns: No Agree to blood products: Yes Meds Home Medications and Allergies Home Medications Medication Instructions Recorded Confirmed Type aspirin 81 mg tablet,delayed 81 mg PO DAILY 01/07/19 12/04/22 History release (Aspir-Low) multivitamin 1 tablet PO DAILY 01/07/19 12/04/22 History cyanocobalamin (vitamin B-12) 1,000 mcg PO 2
[2022-12-12] VITALS (21 sets, daily range): BP systolic 113–140; BP diastolic 77–97; PULSE 53–115; RESP 12–18; TEMP 35.7–36.8; O2SAT 93–100
[2022-12-12] MEDS: LACTATED RINGERS 1,000 ML 30 ML IV CONT ×2 (06:43→09:10)
--- NOTE | 2022-12-12 06:54 | WPDANESEPPF ---
Anes - Initial Pre Proc Eval Procedure: Operation Date: 12/12/22 07:30 Proposed Procedures p Trans Urethral Resection Prostate - Luis Alfredo Mcgill MD Date/Time: 12/12/22 06:54 Surgeon: Luis Alfredo Mcgill MD Pre Op Diagnosis: bph Patient Data Age: 67 Gender: M Height: 1.77 m Weight: 87.8 kg Last Vital Signs Temp 36.3 C L 12/12/22 06:40 Pulse 77 12/12/22 06:40 Resp 14 12/12/22 06:40 BP 136/79 12/12/22 06:40 Pulse Ox 97 12/12/22 06:40 O2 Del Method Room Air 12/12/22 06:40 Allergies Allergy/AdvReac Type Severity Reaction Status Date / Time No Known Allergies Allergy Unknown Verified 12/12/22 06:49 Home Medications Medication Instructions Recorded Confirmed Type aspirin 81 mg tablet,delayed 81 mg PO DAILY 01/07/19 12/05/22 History release (Aspir-Low) multivitamin 1 tablet PO DAILY 01/07/19 12/05/22 History cyanocobalamin (vitamin B-12) 1,000 mcg PO 2XW 04/01/19 12/05/22 History 1,000 mcg capsule pyridoxine (vitamin B6) 50 mg 50 mg PO DAILY 04/01/19 12/05/22 History capsule ferrous sulfate 325 mg (65 mg 325 mg PO DAILY #30 tabs 09/12/20 12/05/22 Rx iron) tablet ascorbate calcium (vitamin C) 500 500 mg PO DAILY 11/08/20 12/05/22 History mg tablet tamsulosin 0.4 mg capsule (Flomax) 0.4 mg PO QHS #90 caps 06/02/22 12/05/22 Rx finasteride 5 mg tablet 5 mg PO DAILY #90 tabs 08/25/22 12/05/22 Rx yyhzkobmtxo-[id number]-hyal 1 tablet PO DAILY 09/19/22 12/05/22 History 750 mg-100 mg-125 mg-1.65 mg tablet (Glucosamine Chondroit Complx Advan) latanoprost 0.005 % eye drops 1 drp EACH EYE HS 09/19/22 12/05/22 History simvastatin 40 mg tablet 40 mg PO DAILY #100 tabs 08/06/23 10/12/23 Rx Patient hx anesthesia problems: none Family hx anesthesia problems: none Results Review: All pre-operative results and documents have been reviewed as part of the pre-operative evaluation. [facility] Past Medical History Medical History Actinic keratosis Acute pharyngitis, unspecified Benign prostatic hyperplasia without lower urinary tract symptoms Chronic left ventricular systolic dysfunction Chronic low back pain Chronic systolic (congestive) heart failure Colon cancer screening COVID-19 Dietary counseling and surveillance (05/30/15) Dyslipidemia Elevated glucose Family history of early CAD Fatigue Glaucoma Hx of melanoma of skin 0.43 mm February 2014 Mixed hyperlipidemia Multinodular goiter Nail remnant of finger Numbness of right hand Other chronic pain Paresthesia and pain of right extremity Paresthesia of skin Personal history of malignant melanoma Prediabetes Prediabetes Prostate cancer screening Situational depression Skin exam, screening for cancer Skin neoplasm Thyroid nodule Thyroid nodule Tinnitus Vitamin D deficiency Wellness examination Surgical History Surgical History History of hernia repair History of spinal fusion Family History Family History Father Hypertension Patient's father is in good health Family history of cardiovascular disease Mother Patient's mother is Sibling Patient's sister is in good health Patient's brother is in good health Other Family history of congestive heart failure Social History Social History (Updated 12/12/22 @ 06:57 by Jeferson Beltran MD) Smoking status: Current some day smoker Tobacco type: cigars Second hand tobacco smoke exposure: No Additional smoking assessment comments: OCCASIONAL CIGAR X 20 YRS Alcohol intake: current Drinks per week: 4 Substance use: never Substance use type: does not use Lack of Transportation: No Lack of Food: Never True Current Housing: I Have Housing Concerned About Future Housing: No Difficulty Paying Gas/Electric Bills: No Difficulty Paying for Med
--- NOTE | 2022-12-12 07:32 | WPDHPUPDATE1 ---
History and Physical Update Update Date/Time: 12/12/22 07:32 History and Physical has been reviewed, including an updated exam of the patient. There are NO changes in the patient's condition. Risks, benefits, and alternatives have been discussed and questions answered. Patient agrees to proceed with procedure.
[2022-12-12] MEDS: ceFAZolin 2 GM/D5W 50 ML 2 GM/50 ML BAG IVPB (07:36)
[2022-12-12] MEDS: LIDOCAINE HCL 2% GEL UROJET 10 ML PKG MUCOUS MEM (07:47)
--- NOTE | 2022-12-12 08:13 | P.OP_ITS ---
Procedure Note - Detailed Date of Procedure 12/12/22 Pre-op Diagnosis BPH Post-op Diagnosis Same Procedure Performed TURP Surgeon Luis Alfredo Mcgill MD Anesthesia General Description of Procedure The patient was brought to the operative suite where he is prepped and draped in routine sterile fashion while in the dorsal lithotomy position after the uneventful induction of a general LMA anesthetic. A 27 Nauruan resectoscope sheath was placed into his bladder. He had no urethral strictures. The patient had bilobar hyperplasia with no median lobe. The bladder itself was endoscopically normal, showing no mucosal hyperemia, intravesical neoplasm or foreign bodies. There was a single, orthotopic ureteral orifice bilaterally. These orifices were identified and preserved throughout the remainder of the procedure. The left lateral lobe was first resected starting at the 6 o'clock position, working counter clockwise to the 12 o'clock position. Resection was carried out from the bladder neck to the verumontanum until the capsular fibers of the prostate were identified. The right lateral lobe was resected in a similar fashion starting at the 6 o'clock position working clockwise to the 12 o'clock position and carried out until the capsular fibers of the prostate were identified. Apical tissue was then circumferentially resected. All chips were evacuated from the bladder using an [employer] evacuator. Hemostasis was obtained with electric cautery. The ureteral orifices were again inspected and found to be without injury. Estimated blood loss throughout this procedure was 50cc. The patient was taken to recovery room having tolerated this well. Drains Yes Pathology Yes Complications No immediate complications Condition Stable Disposition PACU
[2022-12-12] MEDS: fentaNYL CITRATE INJ (*CRX) 100 MCG/2 ML VIAL 25 MCG IV PUSH ×8 (08:20→09:24)
--- NOTE | 2022-12-12 11:18 | PC.NURSE ---
This patient, James Bolton, was admitted to [facility] on 12/12/22 @ 1110. Patient/family oriented to hospital policies and general routines including ID bracelet, bed and alarms, visiting hours, pain management, procedures, bathroom and other care routines, personal items, smoking policy, room service/diet, and visiting hours. Information on how to activate the Rapid Response Team has been discussed. Patient/Family are encouraged to report perceived risks to care and to ask questions if they do not understand what they are told or what they should do.
[2022-12-12] MEDS: MORPHINE SULFATE (*CRX) 2 MG/ML INJ IV PUSH (14:34)
[2022-12-12] MEDS: HYOSCYAMINE SULFATE 0.125 MG TABLET SUBLINGUAL (14:39)
[2022-12-12] MEDS: DOCUSATE SODIUM 100 MG CAPSULE PO (16:23)
[2022-12-12] MEDS: ceFAZolin 1 GM/NS 50 ML 1 GM/50 ML BAG IVPB (16:23)
[2022-12-12] MEDS: LATANOPROST 0.005% OP SOLN 2.5 ML BTL 1 DROP EACH EYE (20:14)
[2022-12-13] VITALS (7 sets, daily range): BP systolic 101–153; BP diastolic 72–93; PULSE 80–100; RESP 14–20; TEMP 36.2–36.7; O2SAT 91–100
--- NOTE | ~2022-12-13 | CT_ITS ---
EXAMINATION: CT abdomen pelvis wo con DATE: 12/16/2022 13:39 INDICATION: Hematuria post recent transurethral prostatectomy TECHNIQUE: Computed tomography (CT) of the abdomen and pelvis was performed without intravenous contr ast. Automated exposure control and iterative reconstruction technique were employed. The dose-length product was 551.05 mGy-cm. COMPARISON: CT abdomen dated 02/18/2019 FINDINGS: Mild discoid atelectasis in the right lower lobe. Calcified left lower lobe nodule consistent with ol d granulomatous disease. Heart size is normal. No pericardial or pleural effusion. Again seen are few low-attenuation cysts scattered throughout the liver. A few scattered tiny splenic calcific lesions consistent with old granulomatous disease. Gallbladder, pancreas and bilateral adrenal glands are nor mal. Kidneys and ureters are normal with no urolithiasis, hydroureteronephrosis or perinephric/ureter al stranding. The bladder is partially decompressed. There is a small polyp of gas in the nondependen t bladder. There is high attenuation material along with a small loculated focus of gas in the depend ent bladder suggesting small amount of post surgical clot/blood. This measures approximately 2 x 3 x 2 cm. No evident extraperitoneal or free intraperitoneal gas or fluid. Bowels including the appendix are normal. No pathologically enlarged abdominal or pelvic lymphadenopathy. Small intramuscular lipom a within the distal left iliac is muscle. Moderate to severe lower lumbar spondylosis. 12 mm grade 2 anterolisthesis L4 on L5 with L4-L5 anterior and posterior spinal fusion including bone graft cage at the disc space and bilateral vertical lita and pedicle screw fixation. IMPRESSION: 1. Small focus of likely postoperative gas within a 3 x 3 x 2 cm region of increased density in the d ependent bladder suggesting the presence of small amount of intraluminal clot but without gallbladder distention or hydronephrosis to suggest obstruction. Reviewed, dictated and finalized at location A. IMPRESSION: 1. Small focus of likely postoperative gas within a 3 x 3 x 2 cm region of incr eased density in the dependent bladder suggesting the presence of small amount of intraluminal clot but without gallbladder distention or hydronephrosis to carnes ggest obstruction.
[2022-12-13] MEDS: MORPHINE SULFATE (*CRX) 2 MG/ML INJ IV PUSH ×2 (00:36→15:42)
[2022-12-13] MEDS: ceFAZolin 1 GM/NS 50 ML 1 GM/50 ML BAG IVPB (00:36)
[2022-12-13 06:35] LABS: Hematocrit 41.4 % (42.0-52.0); Hemoglobin 13.9 g/dL (14.0-18.0)
[2022-12-13 06:40] LABS: Anion Gap 6 mmol/L (8-16); Blood Urea Nitrogen 20 mg/dL (9-20); Calcium 8.6 mg/dL (8.4-10.2); Carbon Dioxide 26 mmol/L (22-30); Chloride 105 mmol/L (98-107); Estimated CRCL calculation 71 ml/min; Estimated Glomerular Filt Rate > 60; Glucose 127 mg/dL (65-110); Potassium 4.1 mmol/L (3.4-5.0); Sodium 137 mmol/L (137-145)
[2022-12-13] MEDS: SIMVASTATIN 20 MG TABLET 40 MG PO (08:27)
[2022-12-13] MEDS: DOCUSATE SODIUM 100 MG CAPSULE PO ×2 (08:27→18:13)
[2022-12-13] MEDS: CEPHALEXIN 500 MG CAPSULE PO ×4 (08:27→20:42)
--- NOTE | 2022-12-13 10:46 | WPDUROPN2 ---
Progress Note: A&P Assessment and Plan (1) BPH (benign prostatic hyperplasia): Code(s): N40.0 - Benign prostatic hyperplasia without lower urinary tract symptoms Status: Acute Assessment and Plan: Doing well POD #1 Catheter out for voiding trial this morning Subjective Subjective Date/Time Seen: 12/13/22 10:46 Interval history: Comfortable, urine clear on very slow CBI Review of Systems Cardiovascular: Cardiovascular: Denies chest pain, Denies lightheadedness, Denies palpitations and Denies dyspnea Respiratory: Respiratory: Denies dyspnea Gastrointestinal: Gastrointestinal: Denies diarrhea, Denies nausea and Denies vomiting Genitourinary: Genitourinary: Denies hematuria and Denies dysuria Endocrine: Endocrine: Denies palpitations Exam Const: General: no acute distress Resp: Effort & Inspection: normal respiratory effort GI: Inspection: non-distended GI Palp: No abdominal tenderness and No Guarding due to palpation present (GI) Auscultation: normal bowel sounds Objective Data Vital Signs Vital Signs: Vital Signs - 24 hr 12/12/22 10:50 12/12/22 11:00 12/12/22 11:20 Temperature 96.3 F L Pulse Rate 60 73 60 Respiratory Rate 16 12 14 Blood Pressure 136/86 140/82 121/81 Pulse Oximetry 95 96 97 Oxygen Delivery Room Air Room Air 12/12/22 11:35 12/12/22 12:05 12/12/22 12:00 Temperature 96.5 F L 96.6 F L Pulse Rate 64 69 Respiratory Rate 14 16 Blood Pressure 122/84 129/88 Pulse Oximetry 98 98 Oxygen Delivery Room Air 12/12/22 12:50 12/12/22 16:50 12/12/22 20:57 Temperature 97.0 F L 98.0 F 97.2 F L Pulse Rate 97 115 H 106 H Respiratory Rate 16 16 16 Blood Pressure 120/96 H 123/88 130/85 Pulse Oximetry 96 97 95 Oxygen Delivery 12/12/22 22:35 12/13/22 04:40 12/13/22 08:50 Temperature 97.2 F L 97.2 F L Pulse Rate 83 92 Respiratory Rate 16 14 Blood Pressure 110/77 123/84 Pulse Oximetry 95 99 100 Oxygen Delivery Intake/Output Intake/Output: Intake & Output 12/10/22 12/11/22 12/12/22 12/13/22 23:59 23:59 23:59 23:59 Intake Total 1560 740 Output Total [id number] [facility] [id number] [id number] Meds/Results Medications: Active Medications Generic Name Dose Route Start Last Admin Trade Name Freq PRN Reason Stop Dose Admin Hydrocodone Bitart/Acetaminophen 1 tab 12/12/22 11:05 Hydrocodone/Acetaminophen (*Crx) 5-325 Mg Tablet PO Q4H PRN Pain Rated 1-6 Cephalexin HCl 500 mg 12/13/22 09:00 12/13/22 08:27 Cephalexin 500 Mg Capsule PO 500 mg QID KIM Administration Docusate Sodium 100 mg 12/12/22 17:00 12/13/22 08:27 Docusate Sodium 100 Mg Capsule PO 100 mg BID KIM Administration Hyoscyamine 0.125 mg 12/12/22 11:05 12/12/22 14:39 Hyoscyamine Sulfate 0.125 Mg Tablet SUBLINGUAL 0.125 mg Q6H PRN Administration Bladder Spasm Dextrose/Lactated Ringer's 1,000 mls @ 125 mls/hr 12/12/22 11:05 12/13/22 03:59 Dextrose 5%/Lactated Ringers IV CONT Not Given .Q8H KIM Latanoprost 1 drop 12/12/22 21:00 12/12/22 20:14 Latanoprost 0.005% Op Soln 2.5 Ml Btl EACH EYE 1 drop HS KIM Administration Morphine Sulfate 2 mg 12/12/22 11:05 12/13/22 00:36 Morphine Sulfate (*Crx) 2 Mg/Ml Inj IV PUSH 2 mg Q2H PRN Administration Pain Rated 7-10 Naloxone HCl 0.1 mg 12/12/22 11:05 Naloxone Hcl 0.4 Mg/Ml Vial IV PUSH Q2M PRN Opiate Reversal Non-Formulary Medication 1 tablet 12/13/22 09:00 Otullcvh-Fxmoc-Reb 149-Hyal Ac [Glucos Chond Cplx Advanced] PO 01/12/23 08:59 DAILY KIM Ondansetron HCl 4 mg 12/12/22 11:05 Ondansetron Inj 4 Mg/2 Ml Vial IV PUSH Q12H PRN Nausea And Vomiting Simvastatin 40 mg 12/13/22 09:00 12/13/22 08:27 Simvastatin 20 Mg Tablet PO 40 mg DAILY KIM Administration Labs Labs: Laboratory Results - last 24 hr 12/13/22 06:02 Hgb 13.9 L Hct 41.4 L Sodium 137 Potassium 4.1 Chloride 105
[2022-12-13] MEDS: HYOSCYAMINE SULFATE 0.125 MG TABLET SUBLINGUAL (15:42)
[2022-12-13] MEDS: WATER FOR IRRIGATION, STERILE 1,000 ML BOTTLE 1000 ML (19:44)
[2022-12-13] MEDS: LATANOPROST 0.005% OP SOLN 2.5 ML BTL 1 DROP EACH EYE (20:42)
[2022-12-13] MEDS: HYDROcodone/acetaminophen (*CRX) 5-325 MG TABLET 1 TAB PO (20:46)
[2022-12-14] VITALS (7 sets, daily range): BP systolic 110–124; BP diastolic 67–77; PULSE 72–88; RESP 14–18; TEMP 36.4–36.6; O2SAT 95–99
[2022-12-14] MEDS: MORPHINE SULFATE (*CRX) 2 MG/ML INJ IV PUSH ×2 (03:31→08:50)
[2022-12-14] MEDS: DOCUSATE SODIUM 100 MG CAPSULE PO ×2 (08:46→17:23)
[2022-12-14] MEDS: CEPHALEXIN 500 MG CAPSULE PO ×4 (08:46→20:25)
[2022-12-14] MEDS: HYOSCYAMINE SULFATE 0.125 MG TABLET SUBLINGUAL (08:50)
[2022-12-14] MEDS: SIMVASTATIN 20 MG TABLET 40 MG PO (08:58)
--- NOTE | 2022-12-14 14:40 | WPDUROPN2 ---
Progress Note: A&P Assessment and Plan (1) BPH (benign prostatic hyperplasia): Code(s): N40.0 - Benign prostatic hyperplasia without lower urinary tract symptoms Status: Acute Assessment and Plan: Continue CBI today and wean to off overnight. If unable to wean successfully will obtain ultrasound of bladder to rule out significant clot burden Subjective Subjective Date/Time Seen: 12/14/22 14:40 Principal diagnosis: BPH post TURP Interval history: Doing well overall but still with occasional clot. Will continue CBI today. Wean to off in morning. If unable to be successful will obtain ultrasound of bladder to rule out any significant clots in bladder Review of Systems Review of Systems: All systems reviewed & are unremarkable except as noted in HPI and below Exam Const: General: cooperative and comfortable Resp: Effort & Inspection: normal respiratory effort Cardio: Rate: regular rate Objective Data Vital Signs Vital Signs: Vital Signs - 24 hr 12/13/22 21:37 12/13/22 23:05 12/14/22 03:30 Temperature 36.7 C Pulse Rate 83 Respiratory Rate 20 Blood Pressure 101/72 Pulse Oximetry 97 96 95 Oxygen Delivery 12/14/22 06:00 12/14/22 13:00 Temperature 36.5 C Pulse Rate 88 Respiratory Rate 18 Blood Pressure 110/77 Pulse Oximetry 97 Oxygen Delivery Room Air Intake/Output Intake/Output: Intake & Output 12/11/22 12/12/22 12/13/22 12/14/22 23:59 23:59 23:59 23:59 Intake Total 1560 740 300 Output Total 81932 5625 1190 [facility]9490 -4885 -890 Meds/Results Medications: Active Medications Generic Name Dose Route Start Last Admin Trade Name Freq PRN Reason Stop Dose Admin Hydrocodone Bitart/Acetaminophen 1 tab 12/12/22 11:05 12/13/22 20:46 Hydrocodone/Acetaminophen (*Crx) 5-325 Mg Tablet PO 1 tab Q4H PRN Administration Pain Rated 1-6 Cephalexin HCl 500 mg 12/13/22 09:00 12/14/22 13:30 Cephalexin 500 Mg Capsule PO 500 mg QID KIM Administration Docusate Sodium 100 mg 12/12/22 17:00 12/14/22 08:46 Docusate Sodium 100 Mg Capsule PO 100 mg BID KIM Administration Hyoscyamine 0.125 mg 12/12/22 11:05 12/14/22 08:50 Hyoscyamine Sulfate 0.125 Mg Tablet SUBLINGUAL 0.125 mg Q6H PRN Administration Bladder Spasm Dextrose/Lactated Ringer's 1,000 mls @ 125 mls/hr 12/12/22 11:05 12/13/22 17:10 Dextrose 5%/Lactated Ringers IV CONT Not Given .Q8H KIM Latanoprost 1 drop 12/12/22 21:00 12/13/22 20:42 Latanoprost 0.005% Op Soln 2.5 Ml Btl EACH EYE 1 drop HS KIM Administration Morphine Sulfate 2 mg 12/12/22 11:05 12/14/22 08:50 Morphine Sulfate (*Crx) 2 Mg/Ml Inj IV PUSH 2 mg Q2H PRN Administration Pain Rated 7-10 Naloxone HCl 0.1 mg 12/12/22 11:05 Naloxone Hcl 0.4 Mg/Ml Vial IV PUSH Q2M PRN Opiate Reversal Non-Formulary Medication 1 tablet 12/13/22 09:00 [id number] 149-Hyal Ac [Glucos Chond Cplx Advanced] PO 01/12/23 08:59 DAILY KIM Ondansetron HCl 4 mg 12/12/22 11:05 Ondansetron Inj 4 Mg/2 Ml Vial IV PUSH Q12H PRN Nausea And Vomiting Simvastatin 40 mg 12/13/22 09:00 12/14/22 08:58 Simvastatin 20 Mg Tablet PO 40 mg DAILY KIM Administration
--- NOTE | 2022-12-14 17:50 | PC.NURSE ---
called Dr Lee, informed that patient is c/o upper abdominal pain 5/10 and discomfort. bowel sounds present. 5 mg oxybutnin TID for spasms PRN and withdraw 5cc from catheter balloon.
[2022-12-14] MEDS: HYDROcodone/acetaminophen (*CRX) 5-325 MG TABLET 1 TAB PO (18:17)
[2022-12-14] MEDS: oxyBUTYnin CHLORIDE 5 MG TABLET PO (18:48)
[2022-12-14] MEDS: LATANOPROST 0.005% OP SOLN 2.5 ML BTL 1 DROP EACH EYE (20:25)
[2022-12-15 02:45] VITALS: O2SAT 96
[2022-12-15 06:00] VITALS: BP 108/66; PULSE 80; RESP 20; TEMP 36.6; O2SAT 97
[2022-12-15] MEDS: SIMVASTATIN 20 MG TABLET 40 MG PO (09:01)
[2022-12-15] MEDS: CEPHALEXIN 500 MG CAPSULE PO ×4 (09:01→21:33)
[2022-12-15] MEDS: DOCUSATE SODIUM 100 MG CAPSULE PO ×2 (09:01→16:47)
[2022-12-15] MEDS: ONDANSETRON INJ 4 MG/2 ML VIAL IV PUSH (11:40)
--- NOTE | 2022-12-15 12:18 | WPDUROPN2 ---
Progress Note: A&P Assessment and Plan (1) BPH (benign prostatic hyperplasia): Code(s): N40.0 - Benign prostatic hyperplasia without lower urinary tract symptoms Status: Acute Assessment and Plan: have weaned CBI to off. If remains clear with ambulation and abdominal discomfort improves can be discharged home. Make sure he has stool softeners and a laxative. Needs to ambulate (2) Post-operative pain: Code(s): G89.18 - Other acute postprocedural pain Status: Acute Assessment and Plan: see above Subjective Subjective Date/Time Seen: 12/15/22 12:18 Principal diagnosis: Each post TURP with hematuria Interval history: Diamond urine appears more clear today on minimal CBI. If. Complete. His main issues Are abdominal discomfort. He had passed gas earlier. He has not been ambulating. Review of Systems Review of Systems: All systems reviewed & are unremarkable except as noted in HPI and below Exam Const: General: cooperative and no acute distress Resp: Effort & Inspection: normal respiratory effort Cardio: Rate: regular rate GI: Inspection: normal to inspection and non-distended GI Palp: Yes Soft to palpation Urinary Catheter: Urinary Catheter: patent and draining and urine clear Objective Data Vital Signs Vital Signs: Vital Signs - 24 hr 12/14/22 13:00 12/14/22 14:00 12/14/22 21:09 Temperature 36.6 C 36.4 C Pulse Rate 76 72 Respiratory Rate 14 18 Blood Pressure 124/77 123/67 Pulse Oximetry 99 99 Oxygen Delivery Room Air 12/14/22 21:13 12/14/22 22:50 12/15/22 02:45 Temperature 36.4 C Pulse Rate 72 72 Respiratory Rate 18 Blood Pressure 123/67 Pulse Oximetry 99 98 96 Oxygen Delivery 12/15/22 06:00 12/15/22 09:00 Temperature 36.6 C Pulse Rate 80 Respiratory Rate 20 Blood Pressure 108/66 Pulse Oximetry 97 Oxygen Delivery Room Air Intake/Output Intake/Output: Intake & Output 12/12/22 12/13/22 12/14/22 12/15/22 23:59 23:59 23:59 23:59 Intake Total 3806 496 5007 218 Output Total 52560 5625 3890 1100 [facility] -[phone] Meds/Results Medications: Active Medications Generic Name Dose Route Start Last Admin Trade Name Freq PRN Reason Stop Dose Admin Hydrocodone Bitart/Acetaminophen 1 tab 12/12/22 11:05 12/14/22 18:17 Hydrocodone/Acetaminophen (*Crx) 5-325 Mg Tablet PO 1 tab Q4H PRN Administration Pain Rated 1-6 Cephalexin HCl 500 mg 12/13/22 09:00 12/15/22 09:01 Cephalexin 500 Mg Capsule PO 500 mg QID KIM Administration Docusate Sodium 100 mg 12/12/22 17:00 12/15/22 09:01 Docusate Sodium 100 Mg Capsule PO 100 mg BID KIM Administration Hyoscyamine 0.125 mg 12/12/22 11:05 12/14/22 08:50 Hyoscyamine Sulfate 0.125 Mg Tablet SUBLINGUAL 0.125 mg Q6H PRN Administration Bladder Spasm Latanoprost 1 drop 12/12/22 21:00 12/14/22 20:25 Latanoprost 0.005% Op Soln 2.5 Ml Btl EACH EYE 1 drop HS KIM Administration Morphine Sulfate 2 mg 12/12/22 11:05 12/14/22 08:50 Morphine Sulfate (*Crx) 2 Mg/Ml Inj IV PUSH 2 mg Q2H PRN Administration Pain Rated 7-10 Naloxone HCl 0.1 mg 12/12/22 11:05 Naloxone Hcl 0.4 Mg/Ml Vial IV PUSH Q2M PRN Opiate Reversal Non-Formulary Medication 1 tablet 12/13/22 09:00 [id number] 149-Hyal Ac [Glucos Chond Cplx Advanced] PO 01/12/23 08:59 DAILY [facility] Ondansetron HCl 4 mg 12/12/22 11:05 12/15/22 11:40 Ondansetron Inj 4 Mg/2 Ml Vial IV PUSH 4 mg Q12H PRN Administration Nausea And Vomiting Oxybutynin Chloride 5 mg 12/14/22 18:31 12/14/22 18:48 Oxybutynin Chloride 5 Mg Tablet PO 5 mg TID PRN Administration Bladder Spasm Simvastatin 40 mg 12/13/22 09:00 12/15/22 09:01 Simvastatin 20 Mg Tablet PO 40 mg DAILY KIM Administration
[2022-12-15] MEDS: MAGNESIUM HYDROXIDE SUSP 30 ML UDC PO (13:03)
[2022-12-15 14:00] VITALS: BP 135/91; PULSE 89; RESP 18; TEMP 36.1; O2SAT 100
[2022-12-15] MEDS: MORPHINE SULFATE (*CRX) 2 MG/ML INJ IV PUSH (18:09)
[2022-12-15 20:00] VITALS: PULSE 86; RESP 18; O2SAT 99
[2022-12-15] MEDS: LATANOPROST 0.005% OP SOLN 2.5 ML BTL 1 DROP EACH EYE (21:33)
[2022-12-15 22:16] VITALS: BP 114/77; PULSE 86; RESP 18; TEMP 36.1; O2SAT 99
[2022-12-15 23:00] VITALS: PULSE 69; O2SAT 99
[2022-12-16 02:33] VITALS: O2SAT 98
--- NOTE | 2022-12-16 05:37 | WPDUROPN2 ---
Progress Note: A&P Assessment and Plan (1) Post-operative pain: Code(s): G89.18 - Other acute postprocedural pain Status: Acute (2) BPH (benign prostatic hyperplasia): Code(s): N40.0 - Benign prostatic hyperplasia without lower urinary tract symptoms Status: Acute Assessment and Plan: Abdominal pain d/t adynamic ileus - hx. similar problems with general anesthesia in past. - Dulcolax supp. and mag. citrate this morning Urine clear off CBI - Defer voiding trial until ileus resolves Subjective Subjective Date/Time Seen: 12/16/22 05:37 Interval history: Still no BM but passing flatus and less abdominal pain today. Urine clear off CBI Review of Systems Review of Systems: All systems reviewed & are unremarkable except as noted in HPI and below Exam Const: General: no acute distress Resp: Effort & Inspection: normal respiratory effort GI: Inspection: non-distended GI Palp: No abdominal tenderness and No Guarding due to palpation present (GI) Auscultation: normal bowel sounds Urinary Catheter: Urinary Catheter: patent and draining and urine clear Objective Data Vital Signs Vital Signs: Vital Signs - 24 hr 12/15/22 06:00 12/15/22 09:00 12/15/22 14:00 Temperature 98 F 96.9 F L Pulse Rate 80 89 Respiratory Rate 20 18 Blood Pressure 108/66 135/91 H Pulse Oximetry 97 100 Oxygen Delivery Room Air 12/15/22 22:16 12/15/22 20:00 12/15/22 23:00 Temperature 97.0 F L Pulse Rate 86 86 69 Respiratory Rate 18 18 Blood Pressure 114/77 Pulse Oximetry 99 99 99 Oxygen Delivery Room Air 12/16/22 02:33 Temperature Pulse Rate Respiratory Rate Blood Pressure Pulse Oximetry 98 Oxygen Delivery Intake/Output Intake/Output: Intake & Output 12/13/22 12/14/22 12/15/22 12/16/22 23:59 23:59 23:59 23:59 Intake Total 740 1540 218 Output Total 5612 3890 2200 [facility] -[phone] -2350 -1982 Meds/Results Medications: Active Medications Generic Name Dose Route Start Last Admin Trade Name Freq PRN Reason Stop Dose Admin Hydrocodone Bitart/Acetaminophen 1 tab 12/12/22 11:05 12/14/22 18:17 Hydrocodone/Acetaminophen (*Crx) 5-325 Mg Tablet PO 1 tab Q4H PRN Administration Pain Rated 1-6 Bisacodyl 10 mg 12/16/22 05:36 Bisacodyl 10 Mg Suppository RECTAL 12/16/22 05:37 ONCE ONE Cephalexin HCl 500 mg 12/13/22 09:00 12/15/22 21:33 Cephalexin 500 Mg Capsule PO 500 mg QID KIM Administration Docusate Sodium 100 mg 12/12/22 17:00 12/15/22 16:47 Docusate Sodium 100 Mg Capsule PO 100 mg BID KIM Administration Hyoscyamine 0.125 mg 12/12/22 11:05 12/14/22 08:50 Hyoscyamine Sulfate 0.125 Mg Tablet SUBLINGUAL 0.125 mg Q6H PRN Administration Bladder Spasm Latanoprost 1 drop 12/12/22 21:00 12/15/22 21:33 Latanoprost 0.005% Op Soln 2.5 Ml Btl EACH EYE 1 drop HS KIM Administration Magnesium Citrate 150 ml 12/16/22 05:37 Magnesium Citrate 300 Ml Btl PO 12/16/22 05:38 ONCE ONE Morphine Sulfate 2 mg 12/12/22 11:05 12/15/22 18:09 Morphine Sulfate (*Crx) 2 Mg/Ml Inj IV PUSH 2 mg Q2H PRN Administration Pain Rated 7-10 Naloxone HCl 0.1 mg 12/12/22 11:05 Naloxone Hcl 0.4 Mg/Ml Vial IV PUSH Q2M PRN Opiate Reversal Non-Formulary Medication 1 tablet 12/13/22 09:00 [id number] 149-Hyal Ac [Glucos Chond Cplx Advanced] PO 01/12/23 08:59 DAILY KIM Ondansetron HCl 4 mg 12/12/22 11:05 12/15/22 11:40 Ondansetron Inj 4 Mg/2 Ml Vial IV PUSH 4 mg Q12H PRN Administration Nausea And Vomiting Simvastatin 40 mg 12/13/22 09:00 12/15/22 09:01 Simvastatin 20 Mg Tablet PO 40 mg DAILY KIM Administration
[2022-12-16 06:00] VITALS: BP 128/78; PULSE 78; RESP 18; TEMP 36.1; O2SAT 99
[2022-12-16] MEDS: MAGNESIUM CITRATE 300 ML BTL 150 ML PO (06:04)
[2022-12-16] MEDS: BISACODYL 10 MG SUPPOSITORY RECTAL (06:04)
[2022-12-16] MEDS: SIMVASTATIN 20 MG TABLET 40 MG PO (08:59)
[2022-12-16] MEDS: CEPHALEXIN 500 MG CAPSULE PO ×4 (09:00→21:55)
[2022-12-16] MEDS: DOCUSATE SODIUM 100 MG CAPSULE PO ×2 (09:00→17:39)
[2022-12-16] MEDS: MORPHINE SULFATE (*CRX) 2 MG/ML INJ IV PUSH (11:59)
[2022-12-16 15:08] VITALS: BP 123/81; PULSE 100; RESP 18; TEMP 36.3; O2SAT 100
[2022-12-16] MEDS: LATANOPROST 0.005% OP SOLN 2.5 ML BTL 1 DROP EACH EYE (21:55)
[2022-12-16 22:03] VITALS: BP 144/88; PULSE 81; RESP 18; TEMP 36.5; O2SAT 100
[2022-12-17] MEDS: WATER FOR IRRIGATION, STERILE 1,000 ML BOTTLE 1000 ML (00:06)
[2022-12-17 02:32] VITALS: O2SAT 98
[2022-12-17 05:41] VITALS: BP 92/65; PULSE 83; RESP 18; TEMP 36.5; O2SAT 100
--- NOTE | 2022-12-17 06:33 | WPDUROPN2 ---
Progress Note: A&P Assessment and Plan (1) BPH (benign prostatic hyperplasia): Code(s): N40.0 - Benign prostatic hyperplasia without lower urinary tract symptoms Status: Acute Assessment and Plan: Finally - voiding well and urine minimally blood tinged. Will watch thru morning - anticipate discharge mid-day. Plan Subjective Subjective Date/Time Seen: 12/17/22 06:33 Interval history: Comfortable and voiding Review of Systems Cardiovascular: Cardiovascular: Denies chest pain, Denies lightheadedness, Denies palpitations and Denies dyspnea Respiratory: Respiratory: Denies dyspnea Gastrointestinal: Gastrointestinal: Denies diarrhea, Denies nausea and Denies vomiting Genitourinary: Genitourinary: Denies hematuria and Denies dysuria Endocrine: Endocrine: Denies palpitations Exam Const: General: no acute distress Resp: Effort & Inspection: normal respiratory effort GI: Inspection: non-distended GI Palp: No abdominal tenderness and No Guarding due to palpation present (GI) Auscultation: normal bowel sounds Objective Data Vital Signs Vital Signs: Vital Signs - 24 hr 12/16/22 09:00 12/16/22 15:08 12/16/22 22:03 Temperature 97.4 F L 97.7 F Pulse Rate 100 81 Respiratory Rate 18 18 Blood Pressure 123/81 144/88 H Pulse Oximetry 100 100 Oxygen Delivery Room Air 12/16/22 20:00 12/17/22 02:32 12/17/22 05:41 Temperature 97.7 F Pulse Rate 83 Respiratory Rate 18 Blood Pressure 92/65 L Pulse Oximetry 98 100 Oxygen Delivery Room Air Intake/Output Intake/Output: Intake & Output 12/14/22 12/15/22 12/16/22 12/17/22 23:59 23:59 23:59 23:59 Intake Total 2607 554 8432 100 Output Total 3890 2200 750 450 Balance -2349 -1982 276 -350 Meds/Results Medications: Active Medications Generic Name Dose Route Start Last Admin Trade Name Freq PRN Reason Stop Dose Admin Hydrocodone Bitart/Acetaminophen 1 tab 12/12/22 11:05 12/14/22 18:17 Hydrocodone/Acetaminophen (*Crx) 5-325 Mg Tablet PO 1 tab Q4H PRN Administration Pain Rated 1-6 Cephalexin HCl 500 mg 12/13/22 09:00 12/16/22 21:55 Cephalexin 500 Mg Capsule PO 500 mg QID KIM Administration Docusate Sodium 100 mg 12/12/22 17:00 12/16/22 17:39 Docusate Sodium 100 Mg Capsule PO 100 mg BID KIM Administration Hyoscyamine 0.125 mg 12/12/22 11:05 12/14/22 08:50 Hyoscyamine Sulfate 0.125 Mg Tablet SUBLINGUAL 0.125 mg Q6H PRN Administration Bladder Spasm Latanoprost 1 drop 12/12/22 21:00 12/16/22 21:55 Latanoprost 0.005% Op Soln 2.5 Ml Btl EACH EYE 1 drop HS KIM Administration Morphine Sulfate 2 mg 12/12/22 11:05 12/16/22 11:59 Morphine Sulfate (*Crx) 2 Mg/Ml Inj IV PUSH 2 mg Q2H PRN Administration Pain Rated 7-10 Naloxone HCl 0.1 mg 12/12/22 11:05 Naloxone Hcl 0.4 Mg/Ml Vial IV PUSH Q2M PRN Opiate Reversal Non-Formulary Medication 1 tablet 12/13/22 09:00 [id number] 149-Hyal Ac [Glucos Chond Cplx Advanced] PO 01/12/23 08:59 DAILY [facility] Ondansetron HCl 4 mg 12/12/22 11:05 12/15/22 11:40 Ondansetron Inj 4 Mg/2 Ml Vial IV PUSH 4 mg Q12H PRN Administration Nausea And Vomiting Simvastatin 40 mg 12/13/22 09:00 12/16/22 08:59 Simvastatin 20 Mg Tablet PO 40 mg DAILY KIM Administration Radiology Results: ITS Impressions Abdomen/Pelvis CT 12/16/22 13:49 IMPRESSION: 1. Small focus of likely postoperative gas within a 3 x 3 x 2 cm region of increased density in the dependent bladder suggesting the presence of small amount of intraluminal clot but without gallbladder distention or hydronephrosis to suggest obstruction.
[2022-12-17] MEDS: SIMVASTATIN 20 MG TABLET 40 MG PO (09:02)
[2022-12-17] MEDS: CEPHALEXIN 500 MG CAPSULE PO (09:02)
[2022-12-17] MEDS: DOCUSATE SODIUM 100 MG CAPSULE PO (09:02)
--- NOTE | 2022-12-17 13:09 | PM.DS ---
DS: Admitting Diagnosis Discharge Date 12/17/2022 Admitting Diagnosis BPH DS: Discharge Diagnosis Discharge Diagnosis (1) BPH (benign prostatic hyperplasia): Code(s): N40.0 - Benign prostatic hyperplasia without lower urinary tract symptoms Status: Acute DS: Summary Hospital Course Hospital Course: This patient with longstanding prostatism refractory for medical management was admitted on the morning of his planned TURP. The procedure was undertaken on that same day in an uneventful fashion. His post-operative course wasWas complicated by intermittent prolonged postoperative bleeding and a need to postpone voiding trial for several days. During that time he had some abdominal pain which is likely due to constipation or an adynamic ileus. This resolved with laxatives. A CT scan abdomen and pelvis wo/ contrast during that time was essentially unremarkable, showing no evidence of significant clot in his bladder hydronephrosis or other findings. Eventually his bleeding stopped he passed a voiding trial. He had been voiding for nearly 24 hours prior to discharge.He was discharged with careful instruction on limiting physical activity x2 weeks and plans to f/ in 2-3 weeks. At discharge he was comfortable and tolerating a diet. Time Spent with Patient Time attestation: Total time spent providing and/or coordinating discharge services: DS: Data Data Completed and Pending Completed studies during hospitalization: Pending at discharge 12/12/22 08:08 Surgical [PTH] Routine Discharge Plan Discharge Attending physician on discharge: Luis Alfredo Mcgill Discharging Clinician: Luis Alfredo Mcgill Patient Disposition: Home, Self-Care Activity: other - see discharge instructions Diet: other - see discharge instructions Discharge Instructions: 1) Activity: No lifting/straining >15lbs. x2 weeks. 2) Diet: Resume normal pre-admission diet. 3) Follow-up: 12/25/22 @8:00am (already has an appt.). Patient Instructions: Antibiotic Form, Posada Catheter Placement and Care (DC), Urinary Leg Bag (GEN), Continuous Bladder Irrigation (GEN), How to Change a Catheter Drainage Bag (DC) Stand Alone Forms: General Discharge Information Follow-up/Referrals: Luis Alfredo Mcgill MD [Physician] - Discharge Medications: New docusate sodium [Colace] 100 mg capsule 100 mg PO DAILY Qty: 30 0RF hydrocodone-acetaminophen 5-325 mg tablet 1 - 2 tablet PO Q6H PRN (Reason: pain) Qty: 20 0RF sulfamethoxazole-trimethoprim 800-160 mg tablet 1 tablet PO Q12H Qty: 6 0RF Continued multivitamin Tablet 1 tablet PO DAILY latanoprost 0.005 % drops 1 drp EACH EYE HS ferrous sulfate 325 mg (65 mg iron) tablet 325 mg PO DAILY Qty: 30 5RF simvastatin 40 mg tablet 40 mg PO DAILY Qty: 100 3RF Rx Instructions: TAKE 1 TABLET DAILY Held aspirin [Aspir-Low] 81 mg tablet,delayed release (DR/EC) 81 mg PO DAILY Hold Instructions: Resume on 12/16/22. pyridoxine (vitamin B6) 50 mg capsule 50 mg PO DAILY Hold Instructions: Resume on 12/16/22. cyanocobalamin (vitamin B-12) 1,000 mcg capsule 1,000 mcg PO 2XW Hold Instructions: Resume on 12/16/22. ascorbate calcium (vitamin C) 500 mg tablet 500 mg PO DAILY Hold Instructions: Resume on 12/16/22. Glucos Chond Cplx Advanced 750 mg-100 mg- 125 mg-1.65 mg Tablet 1 tablet PO DAILY Hold Instructions: Resume on 12/16/22. Discontinued tamsulosin [Flomax] 0.4 mg capsule 0.4 mg PO QHS Qty: 90 3RF finasteride 5 mg tablet 5 mg PO DAILY Qty: 90 1RF Date of admission: 12/16/22 15:00 Primary Care Provider: Sandee Leon Admitting Provider: Luis Alfredo Mcgill Attending physician on admission: Luis Alfredo Mcgill Condition: Stable
== END 2022-12-17 13:27 | disposition home or self-care (01) | DRG 713 ==
LOC: ANHSURGERY 16:30 → ANH3MEDSUR 16:30
PROVIDERS: Admitting Provider Urology; PCP Family Medicine; Visit Provider Urology
PROC: 0VT08ZZ Resection of Prostate, Via Natural or Artificial Opening Endoscopic (ICD-10-PCS; CPT 52601; principal; 2022-12-12 07:30)
DX: N40.0 Benign prostatic hyperplasia without lower urinary tract symptoms (principal); I50.22 Chronic systolic (congestive) heart failure; N99.820 Postprocedural hemorrhage of a genitourinary system organ or structure following a genitourinary system procedure; K56.0 Paralytic ileus; G89.18 Other acute postprocedural pain; K59.00 Constipation, unspecified; E78.5 Hyperlipidemia, unspecified; H40.9 Unspecified glaucoma; Z86.16 Personal history of COVID-19; Z85.820 Personal history of malignant melanoma of skin; Z98.1 Arthrodesis status; Z79.82 Long term (current) use of aspirin
CPT/HCPCS: 36415; 74176; 80048; 85014; 85018; 88305; A9270; C1757; G0378; J0690; J1100; J2270; J2405; J2704; J3010; J7120

== ENCOUNTER 2023-02-27 07:00 | Outpatient (NON) | payer MEDICARE, SELFPAY | END 2023-02-27 07:01 | disposition home or self-care (01) | PROVIDERS: PCP Family Medicine; Visit Provider Nurse Practitioner | DX: L81.2 Freckles (principal) | CPT/HCPCS: 88305 ==

== ENCOUNTER 2023-03-13 07:00 | Outpatient (NON) | payer MEDICARE, SELFPAY | END 2023-03-13 07:01 | disposition home or self-care (01) | LOC: ANHLAB 03-14 07:23 | PROVIDERS: PCP Family Medicine; Visit Provider Nurse Practitioner | DX: C44.519 Basal cell carcinoma of skin of other part of trunk (principal) | CPT/HCPCS: 88305 ==